=== PATIENT | male | born 1945 | race Caucasian/White ===

== ENCOUNTER 2020-12-31 16:08 | Inpatient (IN) | payer MEDICARE ==
[2020-12-31 17:39] LABS: #Eosinphils 0.4 10x3/uL (0.0-0.5); #Monocytes 0.6 10x3/uL (0.0-1.1); #Neutrophils 3.7 10x3/uL (1.5-8.4); %Basophils 0.4 % (0.0-2.0); %Eosinophils 5.9 % (0.0-6.0); %Lymphocytes 29.1 % (18.0-47.0); %Monocytes 9.5 % (0.0-10.0); %Neutrophils 54.7 % (40.0-75.0); Mean Corpuscular HGB CONC 33.2 g/dL (32.0-36.0); Mean Corpuscular Hemoglobin 28.8 pg (27.0-33.0); Mean Corpuscular Volume 86.9 fl (81.2-95.1); Mean Platelet Volume 10.2 fl (7.4-10.4); Platelet Count 157 10x3/uL (150-450); RBC Distribution Width 13.2 % (11.5-14.5); Red Blood Cell (RBC) Count 4.51 10x6/uL (4.32-5.72); White Blood Cell (WBC) Count 6.7 10x3/uL (3.5-10.5)
[2020-12-31] MEDS ORDERED: Sodium Chloride 0.9% 1,000 ML IV SCH (17:45)
[2020-12-31 17:49] LABS: Anion Gap 13 mmol/L (10-20); BUN (Urea Nitrogen) 15 mg/dL (8.4-25.7); Calc. Creatinine Clearance 0 mL/min (70-130); Calcium 9.1 mg/dL (7.8-10.44); Carbon Dioxide 24 mmol/L (23-31); Chloride 105 mmol/L (98-107); Glucose 106 mg/dL (83-110); Potassium 3.7 mmol/L (3.5-5.1); Sodium 138 mmol/L (136-145)
[2020-12-31 17:50] LABS: INR-International Normal Ratio 1.1; PTT 28.2 sec (22.0-33.0); Prothrombin Time 11.8 sec (9.5-12.1)
[2020-12-31 20:12] VITALS: BMI 27.9
[2021-01-01 05:43] LABS: SARS-CoV-2 PCR by NAA Not Detected (NotDetected)
[2021-01-01] MEDS ORDERED: Niacin 500 MG TAB PO SCH (09:00)
[2021-01-01] MEDS: Aspirin 81 mg Enteric Coated Tablet PO SCH (09:32)
[2021-01-01] MEDS: Fish Oil 1,000 MG CAP PO SCH (09:33)
[2021-01-01] MEDS: Atorvastatin Calcium 20 MG TAB PO SCH (20:15)
[2021-01-02] MEDS: Amlodipine 5 MG TAB PO SCH (09:43)
[2021-01-02] MEDS: Aspirin 81 mg Enteric Coated Tablet PO SCH (09:43)
[2021-01-02] MEDS: Fish Oil 1,000 MG CAP PO SCH (09:44)
[2021-01-02] MEDS ORDERED: Acetaminophen 325 MG TAB PO PRN (12:40)
[2021-01-02] MEDS ORDERED: diphenhydrAMINE 25 MG CAP PO PRN (12:40)
[2021-01-02] MEDS ORDERED: Acetaminophen 500 MG TAB PO PRN (13:19)
[2021-01-02] MEDS: Atorvastatin Calcium 20 MG TAB PO SCH (20:53)
[2021-01-03] MEDS: Aspirin 81 mg Enteric Coated Tablet PO SCH (05:49)
[2021-01-03] MEDS: Amlodipine 5 MG TAB PO SCH (05:49)
[2021-01-03] MEDS: Fish Oil 1,000 MG CAP PO SCH (07:43)
[2021-01-03] MEDS ORDERED: Gentamicin 80 MG/2 ML VIAL ONE (07:44)
[2021-01-03] MEDS ORDERED: CEFAZOLIN 1 GM VIAL ONE (07:44)
[2021-01-03] MEDS ORDERED: Sodium Chloride 0.9% 2,000 ML ONE (07:45)
[2021-01-03] MEDS ORDERED: Lidocaine 1% (PF) 30 ML VIAL ONE (07:58)
[2021-01-03] MEDS ORDERED: Midazolam HCl 5 mg/5 ml Vial ONE (08:22)
[2021-01-03] MEDS ORDERED: Fentanyl 100 MCG/2 ML VIAL ONE (08:22)
[2021-01-03] MEDS ORDERED: Sodium Chloride 0.9% 1,000 ML IV SCH (09:45)
[2021-01-03 13:56] VITALS: BP 147/79; TEMP 98.2
== END 2021-01-03 14:21 | disposition home or self-care (01) | DRG 244 ==
LOC: CSHTELE 16:08
PROVIDERS: ADMIT Internal Medicine Cardiovascular Disease; ATTEND Internal Medicine Cardiovascular Disease
PROC: 0JH606Z Insertion of Pacemaker, Dual Chamber into Chest Subcutaneous Tissue and Fascia, Open Approach (ICD-10-PCS; principal; 2021-01-03)
PROC: 02HK3JZ Insertion of Pacemaker Lead into Right Ventricle, Percutaneous Approach (ICD-10-PCS; 2021-01-03)
PROC: 02H63JZ Insertion of Pacemaker Lead into Right Atrium, Percutaneous Approach (ICD-10-PCS; 2021-01-03)
PROC: 3E0132A Introduction of Anti-Infective Envelope into Subcutaneous Tissue, Percutaneous Approach (ICD-10-PCS; 2021-01-03)
DX: I44.1 Atrioventricular block, second degree (principal); I48.0 Paroxysmal atrial fibrillation; Z79.01 Long term (current) use of anticoagulants; I25.10 Atherosclerotic heart disease of native coronary artery without angina pectoris; I10 Essential (primary) hypertension; E78.5 Hyperlipidemia, unspecified; Z95.1 Presence of aortocoronary bypass graft; Z20.822 Contact with and (suspected) exposure to COVID-19
CPT/HCPCS: 33208; 71045; 71046; 80048; 85025; 85610; 85730; 87635; 99152; 99153; J0690; J1580; J2001; J2250; J3010; J7050; Q0163; U0003; U0005